=== PATIENT | male | born 1990 | race Caucasian/White ===

== ENCOUNTER 2016-09-29 18:20 | Emergency (ER) | payer OTHER ==
[~2016-09-29] VITALS: Ht 182.9 cm; Wt 88.6 kg
[2016-09-29 18:22] VITALS: TEMP 98.4
[2016-09-29] MEDS ORDERED: LUNESTA2 MG PO (18:26)
[2016-09-29] MEDS ORDERED: EFFEXOR-XR150 MG PO (18:26)
[2016-09-29 20:17] VITALS: BP 114/70; PULSE 84
== END 2016-09-29 20:49 | disposition home or self-care (01) ==
LOC: COL.ER 18:20
DX: R51 Headache (principal); Z98.890 Other specified postprocedural states
CPT/HCPCS: 3126

== ENCOUNTER → 2017-03-08 | Outpatient (CLI) | payer OTHER ==
[~2017-03-08] MED LIST: EFFEXOR-XR150 MG PO; LUNESTA2 MG PO
== END ==
LOC: MHCPAIN 08:05
DX: G89.29 Other chronic pain (principal); M47.27 Other spondylosis with radiculopathy, lumbosacral region
CPT/HCPCS: G0463

== ENCOUNTER → 2017-04-07 | Outpatient (CLI) | payer OTHER | LOC: MHCPAIN 09:36 | DX: M47.27 Other spondylosis with radiculopathy, lumbosacral region (principal); M48.07 Spinal stenosis, lumbosacral region; M51.27 Other intervertebral disc displacement, lumbosacral region | CPT/HCPCS: J1100; J2250; Q9967 ==

== ENCOUNTER → 2017-04-12 | Outpatient (CLI) | payer OTHER | LOC: MHCPAIN 07:58 | DX: G89.29 Other chronic pain (principal); M47.27 Other spondylosis with radiculopathy, lumbosacral region; M53.3 Sacrococcygeal disorders, not elsewhere classified | CPT/HCPCS: G0463 ==

== ENCOUNTER → 2017-05-12 | Outpatient (CLI) | payer OTHER | LOC: MHCPAIN 08:38 | DX: M47.27 Other spondylosis with radiculopathy, lumbosacral region (principal); M51.17 Intervertebral disc disorders with radiculopathy, lumbosacral region; M48.07 Spinal stenosis, lumbosacral region | CPT/HCPCS: J1100; J2250; J3010; Q9967 ==

== ENCOUNTER → 2017-06-20 | Outpatient (CLI) | payer OTHER | LOC: MHCPAIN 14:13 | DX: G89.29 Other chronic pain (principal); M47.817 Spondylosis without myelopathy or radiculopathy, lumbosacral region; M54.16 Radiculopathy, lumbar region; M53.3 Sacrococcygeal disorders, not elsewhere classified | CPT/HCPCS: G0463 ==

== ENCOUNTER → 2017-07-14 | Outpatient (CLI) | payer OTHER | LOC: MHCPAIN 08:15 | DX: M51.36 Other intervertebral disc degeneration, lumbar region (principal); M47.817 Spondylosis without myelopathy or radiculopathy, lumbosacral region ==

== ENCOUNTER → 2017-07-20 | Outpatient (CLI) | payer OTHER | LOC: MHCPAIN 13:25 | DX: G89.29 Other chronic pain (principal); M47.817 Spondylosis without myelopathy or radiculopathy, lumbosacral region; M54.16 Radiculopathy, lumbar region; M53.3 Sacrococcygeal disorders, not elsewhere classified | CPT/HCPCS: G0463 ==

== ENCOUNTER 2017-08-18 13:18 | Emergency (ER) | payer OTHER ==
[~2017-08-18] VITALS: Ht 182.9 cm; Wt 94.5 kg
[~2017-08-18 13:18] MED LIST changes: -DESYREL 100MG100 MG PO; -FLEXERIL 1010 MG/TAB PO; -MOBIC15 MG PO; -PERIACTIN 4MG TA4 MG PO; -ROBAXIN 50500 MG/TAB PO; -VENLAFAXINE225 MG PO
[2017-08-18 13:21] VITALS: TEMP 99.4
[2017-08-18 13:39] LABS: BASO % 0.2 % (0.0-2.0); EOS # 0.4 (0.0-0.7); EOS % 6.8 % (0-4.0); GRAN # 2.8 (1.4-6.5); GRAN % 47.3 % (42.2-75.2); HEMATOCRIT 42.2 % (42.0-52.0); HEMOGLOBIN 14.7 g/dl (13.5-18.0); LYMPH # 2.2 (1.2-3.4); LYMPH % 36.6 % (20.0-51.0); MEAN CELL VOLUME 86 fl (80.0-100.0); MEAN CORPUSCULAR HEMOGLOBIN 30 pg (27.0-31.0); MEAN CORPUSCULAR HGB CONC 35 g/dl (33.0-37.0); MEAN PLATELET VOLUME 8.9 fl (7.4-10.4); MONO # 0.5 (0.1-0.6); MONO % 8.8 % (1.7-9.3); PLATELET COUNT 196 K/mm3 (130-400); RED BLOOD COUNT 4.93 M/mm3 (4.20-5.60); REDCELL DISTRIBUTION WIDTH-CV 12.6 % (11.5-14.5)
[2017-08-18] MEDS ORDERED: ROBAXIN 50500 MG/TAB PO (13:42)
[2017-08-18] MEDS ORDERED: FLEXERIL 1010 MG/TAB PO (13:42)
[2017-08-18] MEDS ORDERED: VENLAFAXINE225 MG PO (13:42)
[2017-08-18] MEDS ORDERED: PERIACTIN 4MG TA4 MG PO (13:43)
[2017-08-18] MEDS ORDERED: MOBIC15 MG PO (13:43)
[2017-08-18] MEDS ORDERED: DESYREL 100MG100 MG PO (13:43)
[2017-08-18 13:50] LABS: ALBUMIN 4.2 gm/dL (3.5-5.0); BILIRUBIN,TOTAL 0.5 mg/dL (0.0-1.0); CALCIUM 9.3 mg/dL (8.4-10.2); CREATININE, serum 0.92 mg/dL (0.66-1.25); POTASSIUM 4.1 mmol/L (3.4-5.0); TOTAL PROTEIN 7.9 gm/dL (6.4-8.2)
[2017-08-18 14:27] VITALS: BP 108/72; PULSE 90
== END 2017-08-18 14:27 | disposition home or self-care (01) ==
LOC: COL.ER 13:18
PROVIDERS: Emergency Medicine
DX: I47.1 Supraventricular tachycardia (principal); G89.29 Other chronic pain; M54.5 Low back pain; Z90.89 Acquired absence of other organs

== ENCOUNTER → 2017-08-18 | Outpatient (CLI) | payer OTHER ==
[~2017-08-18] MED LIST changes: +DESYREL 100MG100 MG PO; +FLEXERIL 1010 MG/TAB PO; +MOBIC15 MG PO; +PERIACTIN 4MG TA4 MG PO; +ROBAXIN 50500 MG/TAB PO; +VENLAFAXINE225 MG PO
== END ==
LOC: MHCPAIN 12:59
DX: Z01.89 Encounter for other specified special examinations (principal)

== ENCOUNTER → 2017-09-01 | Outpatient (CLI) | payer OTHER ==
[~2017-09-01] MED LIST changes: +DESYREL 100MG100 MG PO; +FLEXERIL 1010 MG/TAB PO; +MOBIC15 MG PO; +PERIACTIN 4MG TA4 MG PO; +ROBAXIN 50500 MG/TAB PO; +VENLAFAXINE225 MG PO
== END ==
LOC: MHCPAIN 12:03
DX: M47.817 Spondylosis without myelopathy or radiculopathy, lumbosacral region (principal)

== ENCOUNTER → 2017-09-06 | Outpatient (CLI) | payer OTHER | LOC: MHCPAIN 08:36 | DX: G89.29 Other chronic pain (principal); M47.817 Spondylosis without myelopathy or radiculopathy, lumbosacral region; M54.16 Radiculopathy, lumbar region; M53.3 Sacrococcygeal disorders, not elsewhere classified | CPT/HCPCS: G0463 ==